=== PATIENT | female | born 1965 | race Caucasian/White ===

== ENCOUNTER 2017-05-17 13:31 | Emergency (ER) | payer BC ==
[2017-05-17 13:31] VITALS: BMI 31.6
[2017-05-17 13:38] VITALS: RESP 19; TEMP 99.3
--- NOTE | 2017-05-17 14:04 | ED PDOC ---
Arrival/HPI - General Chief Complaint: Flu-like Symptoms Time Seen by Provider: 05/17/17 13:35 Historian: Patient - History of Present Illness Narrative History of Present Illness (Text): you were treated in the ED today for sinus congestion, cough with yellow sputum , fever, generalized body aches, but otherwise without any nausea/vomiting/ headache/dizziness/difficulty breathing/chest pain/abdomen pain/numbness/ tingling/loss of limb function/pain with urination. 05/17/17 14:01 Time/Duration: Other (2 days) Symptom Onset: Gradual Symptom Course: Unchanged Quality: Aching Past Medical History - Provider Review Nursing Documentation Reviewed: Yes - Travel History Have you recently traveled outside [place] w/in the past 3 mons?: No - Infectious Disease Hx of Infectious Diseases: None - Tetanus Immunization Tetanus Immunization: Up to Date - Past Medical History Past Medical History: No Previous - Cardiac Hx Cardiac Disorders: Yes Hx Cardiac Arrhythmia: Yes - Pulmonary Hx Respiratory Disorders: Yes Hx Asthma: Yes - Neurological Hx Neurological Disorder: No - HEENT Hx HEENT Disorder: No - Renal Hx Renal Disorder: No - Endocrine/Metabolic Hx Endocrine Disorders: No - Hematological/Oncological Hx Blood Disorders: No - Integumentary Hx Dermatological Disorder: No - Musculoskeletal/Rheumatological Hx Musculoskeletal Disorders: No - Gastrointestinal Hx Gastrointestinal Disorders: No - Genitourinary/Gynecological Hx Genitourinary Disorders: No - Psychiatric Hx Psychophysiologic Disorder: No Hx Depression: No Hx Emotional Abuse: No Hx Physical Abuse: No Hx Substance Use: No - Past Surgical History Past Surgical History: No Previous - Suicidal Assessment Feels Threatened In Home Enviroment: No Family/Social History - Physician Review Nursing Documentation Reviewed: Yes Family/Social History: No Known Family HX Smoking Status: Never Smoked Hx Alcohol Use: No Hx Substance Use: No Hx Substance Use Treatment: No Allergies/Home Meds Allergies/Adverse Reactions: Allergies No Known Allergies Allergy (Verified 05/17/17 13:32) Home Medications: Home Meds Medication Instructions Recorded Confirmed Azithromycin [Z-Mario] 1 tab PO DAILY 05/17/17 05/17/17 Benzonatate 100 mg PO TID 05/17/17 05/17/17 Review of Systems - Review of Systems Constitutional: Fevers ENT: Sore Throat, Sinus Congestion Respiratory: Cough Cardiovascular: Normal Gastrointestinal: Normal Genitourinary Female: Normal Musculoskeletal: Myalgias Skin: Normal Neurological: Normal Endocrine: Normal Hemo/Lymphatic: Normal Psychiatric: Normal Physical Exam Vital Signs Reviewed: Yes Vital Signs Temp Pulse Resp BP Pulse Ox 05/17/17 16:02 96 H 19 107/83 96 05/17/17 13:37 99.3 F 99 H 19 160/80 H 99 Temperature: Afebrile Blood Pressure: Hypertensive Pulse: Regular Respiratory Rate: Normal Appearance: Positive for: Well-Appearing, Non-Toxic Pain Distress: None Mental Status: Positive for: Alert and Oriented X 3 - Systems Exam Head: Present: Atraumatic, Normocephalic Pupils: Present: PERRL Extroacular Muscles: Present: EOMI Conjunctiva: Present: Normal Ears: Present: Normal Mouth: Present: Moist Mucous Membranes Pharnyx: Present: Other (mild pharyngeal hyperemia wo fluctuance/crepitus, + patent airway.) Nose (Internal): Present: Rhinorrhea Neck: Present: Normal Range of Motion Respiratory/Chest: Present: Clear to Auscultation, Good Air Exchange Cardiovascular: Present: Regular Rate and Rhythm Abdomen: No: Tenderness, Distention, Normal Bowel Sounds, Peritoneal Signs, Rebound, Guarding, McBurney's Point Tender, Rovsing's Sign Present, Hernias, Feeding Tubes, Ostomy Tubes, Mass/Organomegaly, Scars, Other Back: Present: Normal Inspection Upper Extremity: Present: Normal Inspection Lower Extremity: Present: Normal Inspection Neurological: Present: GCS=15, CN II-XII Intact, Speech Normal, Motor Func Grossly Intact Skin: Present: Warm, Normal Color Psychiatric: Present: Alert, Oriented x 3, Normal Insight, Normal Concentration Medical Decision Making ED Course and Treatment: you were treated in the ED today for sinus congestion, cough with yellow sputum , fever, sore throat, generalized body aches, but otherwise without any nausea/ vomiting/headache/dizziness/difficulty breathing/chest pain/abdomen pain/ numbness/tingling/loss of limb function/pain with urination. You were otherwise breathing easily, smiling with your son, good strength/sensation, walking easily , clear lungs, no abdomen tenderness, sinus congestion, back of throat mild redness, no fever temp 99, stable heart rate 99, stable breathing rate 19, excellent oxygen level 99% room air, elevated blood pressure 160/80 which we recommend repeat in 2-3 days primary care office to determine further treatment , , you have blood tests no infection count 5.9, stable blood level hemoglobin 12/platelets 269, stable chemistry, mildly low potassium 3.5 and supplement given, mildly high liver AST/ALT 64/122, heart blood test normal, rapid strep test negative, influenza test positive and tamiflu given, urine test negative, radiology chest xray no acute findings, motrin, tamiflu, intravenous fluids and observation done in the ED with improvement, counselled to drink lots of fluids and thus discharged home with son. 1. Recommend tamiflu as directed for infection control. 2. Recommend follow-up primary care 2-3 days to review symptoms, referral to gastroenterology clinic for mildly high AST/ALT 64/ 122 to ensure no complications, referral to pulmonary clinic for lung granuloma to ensure no complications/cancer development. 3. If any worsening pain, fever, chills, nausea, vomiting, difficulty breathing, numbness, loss of limb function , pain with urination or any medical condition then return to the ED. 05/17/17 14:04 05/17/17 16:10 05/17/17 16:11 05/17/17 16:12 05/17/17 16:12 05/17/17 17:07 - Lab Interpretations Lab Results: 05/17/17 15:25 05/17/17 15:25 Lab Results 05/17/17 15:25: PT 13.1 H, INR 1.15 H, APTT 38.5 H 05/17/17 15:25: Sodium 139, Potassium 3.5 L, Chloride 107, Carbon Dioxide 25, Anion Gap 11, BUN 6 L, Creatinine 0.7, Est GFR ( Amer) > 60, Est GFR (Non -Af Amer) > 60, Random Glucose 113 H, Calcium 9.4, Magnesium 1.8, Total Bilirubin 0.5, AST 64 H, ALT 122 H, Alkaline Phosphatase 75, Lactate Dehydrogenase 484, Total Creatine Kinase 110, Troponin I < 0.01, Total Protein 7.5, Albumin 4.0, Globulin 3.5, Albumin/Globulin Ratio 1.1 05/17/17 15:25: WBC 5.9, RBC 4.46, Hgb 12.3, Hct 37.7, MCV 84.5, MCH 27.6, MCHC 32.6, RDW 14.6 H, Plt Count 269, MPV 9.9, Gran % 79.9 H, Lymph % (Auto) 12.5 L, Tompkins % (Auto) 6.7 H, Eos % (Auto) 0.7 L, Baso % (Auto) 0.2, Gran # 4.74, Lymph # 0.7 L, Tompkins # 0.4, Eos # 0.0, Baso # 0.01 05/17/17 14:14: Influenza Typ A,B (EIA) Pos for influenza a H, Grp A Beta Strep Ag Negative - RAD Interpretation Radiology Orders: 05/17/17 13:59 CHEST TWO VIEWS (PA/LAT) [RAD] Stat - Medication Orders Current Medication Orders: Discontinued Medications Sodium Chloride (Sodium Chloride 0.9%) 1,000 mls @ 999 mls/hr IV .Q1H1M STA Stop: 05/17/17 15:51 Last Admin: 05/17/17 15:26 Dose: 999 mls/hr eMAR Start Stop Document 05/17/17 15:26 OCS (Rec: 05/17/17 15:27 [place] [facility] [id number] Intravenous Solution Start Date 05/17/17 Start Time 15:26 End Date 05/17/17 End time 16:27 Total Infusion Time 61 Ibuprofen (Motrin Tab) 800 mg PO STAT STA Stop: 05/17/17 14:00 Last Admin: 05/17/17 14:38 Dose: 800 mg MAR Pain/Vitals Document 05/17/17 14:38 OCS (Rec: 05/17/17 14:39 [place] [facility] [id number] Pain Reassessment Is This A Pain ReAssessment? Yes Sleep Is patient sleeping during reassessment? No Presence of Pain Presence of Pain Yes Pain Scale Used Pain Scale Used Numeric Location Pain Location Body Site Generalized Description Constant Intensity 10 Scale Used Numeric Pain Behavior Moaning Crying Irritability Aggravating Factors ADL's Oseltamivir Phosphate (Tamiflu Cap) 75 mg PO ONCE ONE PRN Reason: Protocol Stop: 05/17/17 16:09 Last Admin: 05/17/17 16:14 Dose: 75 mg Disposition/Present on Arrival - Present on Arrival Any Indicators Present on Arrival: No History of DVT/PE: No History of Uncontrolled Diabetes: No Urinary Catheter: No History of Decub. Ulcer: No History Surgical Site Infection Following: None - Disposition Have Diagnosis and Disposition been Completed?: Yes Diagnosis: Influenza Disposition: HOME/ ROUTINE Disposition Time: 17:09 Isolation: Airborne Patient Plan: Discharge Patient Problems: Current Active Problems Problem Status Onset Influenza Acute Condition: IMPROVED Additional Instructions: you were treated in the ED today for sinus congestion, cough with yellow sputum , fever, sore throat, generalized body aches, but otherwise without any nausea/ vomiting/headache/dizziness/difficulty breathing/chest pain/abdomen pain/ numbness/tingling/loss of limb function/pain with urination. You were otherwise breathing easily, smiling with your son, good strength/sensation, walking easily , clear lungs, no abdomen tenderness, sinus congestion, back of throat mild redness, no fever temp 99, stable heart rate 99, stable breathing rate 19, excellent oxygen level 99% room air, elevated blood pressure 160/80 which we recommend repeat in 2-3 days primary care office to determine further treatment , , you have blood tests no infection count 5.9, stable blood level hemoglobin 12/platelets 269, stable chemistry, mildly low potassium 3.5 and supplement given, mildly high liver AST/ALT 64/122, heart blood test normal, rapid strep test negative, influenza test positive and tamiflu given, urine test negative, radiology chest xray no acute findings, motrin, tamiflu, intravenous fluids and observation done in the ED with improvement, counselled to drink lots of fluids and thus discharged home with son. 1. Recommend tamiflu as directed for infection control. 2. Recommend follow-up primary care 2-3 days to review symptoms, referral to gastroenterology clinic for mildly high AST/ALT 64/ 122 to ensure no complications, referral to pulmonary clinic for lung granuloma to ensure no complications/cancer development. 3. If any worsening pain, fever, chills, nausea, vomiting, difficulty breathing, numbness, loss of limb function , pain with urination or any medical condition then return to the ED. Prescriptions: Oseltamivir Phosphate [Tamiflu] 75 mg PO Q12 5 Days #10 capsule Forms: [employer] ([employer]), WORK NOTE
[2017-05-17] MEDS ORDERED: Sodium Chloride 0.9% 1,000 ML IV STA (14:51)
[2017-05-17 14:58] LABS: INFLUENZA A B POS FOR INFLUENZA A (NEGATIVE)
[2017-05-17 15:35] LABS: BASO # 0.01 [, K/mm3] (0.0-2.0); BASO % 0.2 % (0.0-3.0); EOS % 0.7 % (1.5-5.0); GRAN # 4.74 (1.4-6.5); GRAN % 79.9 % (50.0-68.0); HEMOGLOBIN 12.3 g/dL (12.0-16.0); LYMPH # 0.7 (1.2-3.4); LYMPH % 12.5 % (22.0-35.0); MEAN CELL VOLUME 84.5 fl (80.0-105.0); MEAN CORPUSCULAR HEMOGLOBIN 27.6 pg (25.0-35.0); MEAN CORPUSCULAR HGB CONC 32.6 g/dl (31.0-37.0); MEAN PLATELET VOLUME 9.9 fl (7.0-11.0); MONO # 0.4 (0.1-0.6); MONO % 6.7 % (1.0-6.0); RBC 4.46 [, 10^6/uL] (3.5-6.1); RED CELL DISTRIBUTION WIDTH 14.6 % (11.5-14.5); WHITE BLOOD COUNT 5.9 [, 10^3/ul] (4.5-11.0)
[2017-05-17 15:45] LABS: INR 1.15 (0.93-1.08); PARTIAL THROMBOPLASTIN TIME 38.5 Seconds (25.1-36.5); PROTHROMBIN TIME 13.1 SECONDS (9.4-12.5)
[2017-05-17 15:51] LABS: ALB/GLOB RATIO 1.1 (1.1-1.8); ALT/SGPT 122 U/L (7-56); AST/SGOT 64 U/L (14-36); BLOOD UREA NITROGEN 6 mg/dL (7-21); CALCIUM 9.4 mg/dL (8.4-10.5); GFR AFRICAN-AMERICAN > 60; GFR NON-AFRICAN AMERICAN > 60; MAGNESIUM 1.8 mg/dL (1.7-2.2)
[2017-05-17 16:01] LABS: TROPONIN I < 0.01 ng/mL
[2017-05-17 16:26] VITALS: BP 107/83; PULSE 96; O2SAT 96
--- NOTE | 2017-05-17 16:50 | RAD ---
HISTORY: 51yoF, with cough COMPARISON: None available. TECHNIQUE: Chest PA and lateral FINDINGS: LUNGS: No focal consolidation. 4 mm probable right upper lobe calcified granuloma. Please note that chest x-ray has limited sensitivity for the detection of pulmonary masses. PLEURA: No significant pleural effusion identified. No definite pneumothorax . CARDIOVASCULAR: Heart size appears within normal limits. OSSEOUS STRUCTURES: Mild degenerative changes. VISUALIZED UPPER ABDOMEN: Unremarkable. OTHER FINDINGS: None. IMPRESSION: No acute findings identified. See above.
== END 2017-05-17 17:28 | disposition home or self-care (01) ==
LOC: ED 13:31
DX: J11.1 Influenza due to unidentified influenza virus with other respiratory manifestations (principal)
CPT/HCPCS: 71046; 80053; 82550; 83615; 83735; 84484; 85025; 85610; 85730; 87070; 87430; 87804; 96360; 99284; J7040